=== PATIENT | male | born 1950 | race Caucasian/White ===

== ENCOUNTER → 2019-08-27 08:58 | Outpatient (CLI) | payer MEDICARE, OTHER, SELFPAY ==
--- NOTE | 2019-08-27 | CA_ITS ---
APPROVED REPORT Exam: Exercise Treadmill Technologist: Antonietta Colon, Ht: 5 ft 10 in Wt: 211 lbs BSA: 2.14 m2 HR: 82 bpm BP: 130/88 mmHg Rhythm: SINUS RHYTHM Medical History Medical History: Smoking Allergies: No known drug allergies Cardiac Risk Factors: Smoking Stress Test Details Test: Pb HR Resting HR: 84 bpm Max Heart Rate (APMHR): 151 bpm Max HR Achieved: 149 bpm Target HR (85% APMHR): 128 bpm % of APMHR: 98 Recovery HR: 128 bpm BP Resting BP: 144.0/89.0 mmHg Max BP: 174.0/92.0 mmHg Recovery BP: 167.0/92.0 mmHg ECG Resting ECG: SINUS RHYTHM Clinical Exercise duration: 07:50 min Highest Stage Achieved: Exercise capacity: 10.1 METs Stress ECG Conclusion PB PROTOCOL COMPLETED. EXERCISED 7:50. METS = 10.1. MAX BP 174/92. STOPPED DUE TO SOA AND KNEE PAIN. NO CHEST PAIN. NO ECTOPY. LESS THAN 1.[address] DEPRESSION. GXT ONLY. AVERAGE EXERCISE TOLERANCE. APPROPRIATE BP RESPONSE. NO CHEST PAIN, LESS THAN 1.5MM ST DEPRESSION Electronically signed by : Thanh Peña, 08/30/2019 07:07:24
== END ==
PROVIDERS: Visit Provider Family Medicine
DX: R07.89 Other chest pain (principal)
CPT/HCPCS: 93017

== ENCOUNTER → 2021-06-19 09:27 | Outpatient (POV) | payer MEDICARE, OTHER, SELFPAY | PROVIDERS: Visit Provider Dermatology | DX: Z00.00 Encounter for general adult medical examination without abnormal findings (principal) ==

== ENCOUNTER → 2021-06-22 13:11 | Outpatient (CLI) | payer MEDICARE, OTHER, SELFPAY ==
--- NOTE | 2021-06-22 13:16 | CT_ITS ---
FINAL REPORT CLINICAL HISTORY: H/O NICOTINE DEPENDENCE, SMOKER FOR 50+ YEARS FINDINGS: Low-Dose Chest CT CTDI vol (mGy): 2.90 DLP (mGy-cm): 112.81 Axial images were obtained from the lung apex to the mid abdomen by computed tomography. Low-dose protocol was utilized. FINDINGS: CHEST: There is no axillary adenopathy. There is no hilar or mediastinal adenopathy. The heart is proper size. There is no pericardial or pleural effusion. Limited images of the upper abdomen are unremarkable. Lung window images demonstrate mild scarring. There are multi focal small ground-glass nodules/opacities which are greatest in the right upper lobe. There is a 2 mm nodule in the lateral left upper lobe on image 27. There is a 4 mm nodule lateral left lower lobe on image 69. There are several calcified granulomas in the left lower lobe. IMPRESSION: Lung RADS category 2. Recommend 12 month follow-up low-dose chest CT. Reviewed, Interpreted and Dictated by Houston Sahni III, MD Transcribed by Gricel Anderson Authenticated by Houston Sahni III, MD on 06/22/2021 02:07:07 PM [facility]
== END ==
PROVIDERS: PCP Family Medicine; Visit Provider Family Medicine
DX: Z87.891 Personal history of nicotine dependence (principal); Z12.2 Encounter for screening for malignant neoplasm of respiratory organs
CPT/HCPCS: 71271

== ENCOUNTER → 2021-06-27 11:18 | Outpatient (CLI) | payer MEDICARE, SELFPAY ==
[2021-06-28 06:44] LABS: Covid-19 Nasal PCR Sendout Lex NOT DETECTED
== END ==
PROVIDERS: PCP Family Medicine; Visit Provider Nurse Practitioner
DX: Z20.822 Contact with and (suspected) exposure to COVID-19 (principal)
CPT/HCPCS: C9803; U0004; U0005

== ENCOUNTER → 2021-06-27 11:28 | Outpatient (CLI) | payer MEDICARE, SELFPAY | PROVIDERS: PCP Family Medicine; Visit Provider Nurse Practitioner | DX: Z20.822 Contact with and (suspected) exposure to COVID-19 (principal) ==

== ENCOUNTER 2021-06-29 09:24 | Day surgery (SDC) | payer MEDICARE, SELFPAY ==
[2021-06-27 09:27] VITALS: BMI 29.5
[2021-06-29] VITALS (7 sets, daily range): BP systolic 130–153; BP diastolic 86–98; PULSE 76–100; RESP 18; TEMP 36.3–36.4; O2SAT 95–98
--- NOTE | 2021-06-29 09:55 | HMH.ANESCL ---
[facility] Anesthesia Checklist - Patient Identification Patient Identification: Arm Band - Structural Data Admitted From: Home Planned Operative Procedure/s: Ureteroscopy Consent for Planned Operative Procedure(s) Verified: Yes - NPO Status Verified Time NPO: 07:00 (Prep) - Additional verifications Anesthesia Reactions: No Hx Blood Transfusions: No Blood Transfusion Reaction: No - Airway Assessment C-Spine Mobility Assessed: Yes TMJ Mobility Assessed: Yes Dentition: Good Dentition - Neurological Assessment Level of Consciousness: Awake Hx Seizures: No Numbness or tingling in extremities: No - Anesthesia Plan Anesthesia Risk discussed: Yes Anesthesia Plan: Verified ASA Class: II Anesthesia Type: MAC [facility] History I have reviewed the patient's past medical history: Yes Medical History: Reports:: Cancer (skin - back), Hypertension Denies:: Diabetes Mellitus Type 1, Diabetes Mellitus Type 2, Internal Pacemaker, MRSA, Seizures *Have you ever received a pneumonia vaccine?: No *Have you received a flu vaccine this season?: No Other Medical History: Denies: Blood Transfusion Reaction Anesthesia experience/problems:: None Laterality Cases: Bilateral: Tonsillectomy Other Surgeries: No: Pacemaker Amputation: No Fractures: No - *Social History Last grade of school completed: High school graduate Smoking Status: Current every day smoker Tobacco Type: cigarettes # Packs/Day (cigarettes): 1 Alcohol Intake: never Substance Use Type: denies use *Occupational Status:: retired Housing: house Household Members: spouse *Travel in the last 8 weeks: None Family Hx:: Unable to obtain
--- NOTE | 2021-06-29 11:35 | HMH.SCOPE ---
- Procedure: Date: 06/29/21 Patient Date of :: 1950 Procedure Performed:: Total colonoscopy to terminal ileum with numerous polypectomy using cold snare and biopsy forceps Indications:: Patient is a 70-year-old male. He is referred by Dr. Matthieu Quinn for initial screening colonoscopy. He is somewhat hard of hearing. He does have a family history of colon cancer in his grandfather at an advanced age. He is asymptomatic regarding melena or symptoms consistent with hematochezia. Performing Provider:: Houston Richard MD Referring Provider:: Matthieu Quinn MD Sedation:: MAC sedation Procedure:: Patient was taken to endoscopy procedure room. He was positioned in lateral decubitus position. Adequate intravenous sedation was achieved with anesthesia titration of propofol. Digital examination was performed which was unremarkable. Variable stiffness Olympus colonoscope was inserted via the anus. Is advanced to the cecum. There is a large amount of liquid with gaseous bubbles noted. Irrigation and suctioning was performed to allow for good visualization. Ileocecal valve and appendiceal orifice were clearly identified. Colonoscope was advanced short distance into the terminal ileum. There was a small distal ileal diverticulum. Colonoscope was withdrawn into the colon. There were a couple of tiny diminutive polyps in the cecum removed with biopsy forceps. Colonoscope was withdrawn through the colon with careful surveillance. Distal transverse colon polyp was removed with biopsy forceps. There were a couple of small adenomatous appearing polyps in the descending colon measuring 4 to 6 mm. These were removed with cold snare. Distal descending colon there was a small polyp removed with biopsy forceps. In the sigmoid colon there were several polyps removed with biopsy forceps. In the distal sigmoid there were 3 polyps 2 of which were removed with cold snare and 1 removed with biopsy forceps. Small polyp in the rectum was removed with snare. Retroflexion within the rectum revealed no evidence of any pathologic internal hemorrhoids. He did have some sigmoid diverticulosis. Findings:: Small terminal ileum diverticulum Numerous small polyps, approximately 13, removed by snare and biopsy forceps techniques. Larger more adenomatous appearing polyps were in the descending colon. These measured about 6 mm. Sigmoid diverticulosis Recommendations:: Pending the pathology likely repeat colonoscopy 3 to 5 years Complications:: None immediately apparent Estimated blood obtained (mL): 3
== END 2021-06-29 12:38 | disposition home or self-care (01) ==
LOC: OUTP 09:25
PROVIDERS: PCP Family Medicine; Visit Provider Surgery
PROC: 0DJD8ZZ Inspection of Lower Intestinal Tract, Via Natural or Artificial Opening Endoscopic (ICD-10-PCS; principal; 2021-06-29 10:30)
DX: Z12.11 Encounter for screening for malignant neoplasm of colon (principal); K63.5 Polyp of colon; K62.1 Rectal polyp; K57.30 Diverticulosis of large intestine without perforation or abscess without bleeding; K57.32 Diverticulitis of large intestine without perforation or abscess without bleeding; K92.1 Melena; I10 Essential (primary) hypertension; Z85.828 Personal history of other malignant neoplasm of skin; Z72.0 Tobacco use; Z79.899 Other long term (current) drug therapy
CPT/HCPCS: 45380; 45385; 88305; J2704

== ENCOUNTER → 2021-07-03 13:33 | Outpatient (POV) | payer MEDICARE, SELFPAY | PROVIDERS: Visit Provider Dermatology | DX: Z00.00 Encounter for general adult medical examination without abnormal findings (principal) ==

== ENCOUNTER 2022-03-06 21:45 | Inpatient (IN) | payer MEDICARE, SELFPAY ==
--- NOTE | 2022-03-06 21:44 | ECG_ITS ---
APPROVED REPORT Exam: Resting ECG HR:80 bpm ECG Measurements Heart Rate 80 AXES ND 173 P 72 QRSd 113 QRS -55 QT 369 T 63 QTc 405 Conclusion SINUS RHYTHM INCOMPLETE RIGHT BUNDLE BRANCH BLOCK [90+ ms QRS DURATION, TERMINAL R IN V1/V2, 40+ ms S IN I/aVL/V4/V5/V6] LEFT ANTERIOR FASCICULAR BLOCK [QRS AXIS <= -45, QR IN I, RS IN II] ABNORMAL ECG UNCONFIRMED REPORT Electronically signed by : Thanh Peña MD 03/07/2022 21:06:50
[2022-03-06 21:45] VITALS: BP 166/108; PULSE 86; O2SAT 95
[2022-03-06 21:46] VITALS: BP 166/108; PULSE 82; RESP 16; TEMP 36.6; O2SAT 95; BMI 28.3
--- NOTE | 2022-03-06 21:49 | XR_ITS ---
PROCEDURE INFORMATION: Exam: XR Chest Exam date and time: 03/06/2022 10:22 PM Age: 71 years old Clinical indication: Other: Sharp pain between scapulae. ; Additional info: Chest pain TECHNIQUE: Imaging protocol: Radiologic exam of the chest. Views: 1 view. COMPARISON: CT LUNG SCREENING 06/22/2021 1:20 PM FINDINGS: Lungs: No consolidation. Pleural spaces: No pneumothorax. Heart/Mediastinum: No cardiomegaly. Bones/joints: No acute abnormality. IMPRESSION: No acute findings.
--- NOTE | 2022-03-06 21:49 | CT_ITS ---
PROCEDURE INFORMATION: Exam: CTA Chest With Contrast Exam date and time: 03/06/2022 10:45 PM Age: 71 years old Clinical indication: Pain; Angina pectoris; Additional info: Chest pain TECHNIQUE: Imaging protocol: Computed tomographic angiography of the chest with contrast. 3D rendering (Not supervised by radiologist): MIP and/or 3D reconstructed images were created by the technologist. Radiation optimization: All CT scans at this facility use at least one of these dose optimization techniques: automated exposure control; mA and/or kV adjustment per patient size (includes targeted exams where dose is matched to clinical indication); or iterative reconstruction. Contrast material: ISOVUE; Contrast volume: 75 ml; Contrast route: INTRAVENOUS (IV); COMPARISON: CR XR CHEST PORTABLE 03/06/2022 10:22 PM FINDINGS: Limitations: Bolus timing is non-diagnostic for exclusion of most pulmonary emboli (segmental/subsegmental) due to suboptimal pulmonary arterial opacification (main pulmonary artery <200 HU). Pulmonary arteries: No large central pulmonary emboli. Aorta: No aortic dissection or aneurysm. Lungs: No acute airspace consolidation. No appreciable pulmonary edema. Calcified pulmonary granuloma in the left lower lobe compatible with chronic sequelae of prior granulomatous disease. Pleural spaces: No pneumothorax. No pleural effusion. Heart: No cardiomegaly. No significant pericardial effusion. Lymph nodes: No enlarged lymph nodes by CT criteria. Intraperitoneal space: No emergent findings or suspicious mass lesions in the visualized upper abdomen. Bones/joints: No acute osseous abnormality. Soft tissues: Unremarkable. IMPRESSION: 1. No evidence of acute cardiopulmonary disease. 2. No evidence of large pulmonary emboli. Technically non-diagnostic study for definitive exclusion of most pulmonary emboli.
[2022-03-06 22:00] VITALS: BP 164/96; PULSE 75; O2SAT 93
[2022-03-06 22:00] LABS: Basophils # 0.1 K/mm3 (0-0.2); Eosinophils # 0.2 K/mm3 (0.0-0.4); Eosinophils % 2.2 % (0.1-12.0); Hematocrit 48.4 % (42.0-52.0); Hemoglobin 15.8 g/dL (14.1-18.0); Lymphocytes # 2.2 K/mm3 (0.7-4.5); Lymphocytes % 24.4 % (10-50); Mean Corpuscular HGB Conc 32.6 g/dL (31.8-35.4); Mean Corpuscular Hemoglobin 31.7 pg (27.0-31.2); Mean Corpuscular Volume 97.1 fl (80-94); Mean Platelet Volume 8.2 fl (7.4-10.4); Monocytes # 0.6 K/mm3 (0.1-1.0); Monocytes % 6.6 % (1.7-9.3); Neutrophils # 6.1 K/mm3 (1.8-7.8); Neutrophils % 65.8 % (37.0-80.0); Platelet Count 260 K/mm3 (142-424); Red Blood Count 4.98 M/mm3 (4.60-6.20); Red Cell Distribution Width 13.6 % (11.5-17.5); White Blood Count 9.2 K/mm3 (4.8-10.8)
--- NOTE | 2022-03-06 22:20 | HMH.EDGENADL ---
Discharge Plan Disposition Chief Complaint: Chest Pain Prescriptions Prescriptions: No Action lisinopril 10 MG tablet 10 mg PO DAILY rosuvastatin 10 MG tablet 10 mg PO DAILY Referrals Follow up/Referrals: Provider,Referral, [Referring] - See instructions Discharge ED Provider: Melissa Booth General Adult HPI General Chief complaint: Chest Pain Stated complaint: chest pain Time Seen by Provider: 03/06/22 21:49 Mode of Arrival: Ambulatory Source of Information: Patient Limitations: No Limitations Description of Symptoms (Recalled from ER Triage Doc. by RN): pt c/o midsternal chest burning radiating to back and down lt arm that started @ 9:15 History of Present Illness HPI narrative: This patient is a 71-year-old male with extensive smoking history and hypertension presented to the emergency department for evaluation of chest pain. It is substernal and radiates straight to his shoulder blades. He states that he also has sensation of numbness in his left upper extremity. He states that it started last night, but it resolved spontaneously. This morning, he was able to go to work without any issues. He went to bed tonight around 9 PM, and the pain started again. It is severe, sharp, constant, and nothing makes it better or worse. He states that he feels like he is having a heart attack. He denies any prior history of heart attacks, blood clots, or other concerns. He denies any fever, shortness of breath, abdominal pain, nausea, vomiting, changes in bowel movements, or other concerns. Related Data Home Medications Medication Instructions Recorded Confirmed lisinopril 10 mg tablet 10 mg PO DAILY High blood pressure 06/27/21 03/07/22 rosuvastatin 10 mg tablet 10 mg PO DAILY Cholesterol 06/27/21 03/07/22 Allergies Allergy/AdvReac Type Severity Reaction Status Date / Time No Known Allergies Allergy Verified 07/12/21 09:33 PFSH PFS Social History Smoking Status: Current every day smoker tobacco type: cigarettes packs per day: 1 alcohol intake: never substance use type: denies use current occupational status: retired Travel in the last 8 weeks: None household members: spouse housing: house current occupational exposures/hazards: No caffeine: Yes ROS Obtained: Yes All systems reviewed & no additional complaints except as documented 14 point review of systems obtained and otherwise negative except as mentioned in HPI. Physical Exam General General appearance: alert and in no apparent distress Head Head exam: atraumatic and normocephalic Eye Eye exam: Present normal appearance, PERRL and EOMI ENT ENT exam: Present normal exam and normal oropharynx Neck Neck exam: Present normal inspection and full ROM Chest Chest inspection: Present normal inspection and symmetric chest wall rise; Absent tenderness Respiratory Respiratory exam: Present normal lung sounds bilaterally; Absent respiratory distress or wheezes Cardiovascular Cardiovascular exam: Present regular rate and normal rhythm Abdominal Exam Abdominal exam: Present soft; Absent distention, tenderness or guarding Extremities Exam Extremities exam: Present normal inspection and full ROM; Absent tenderness or edema Back Exam Back exam: Present normal inspection Neurological Exam Neurological exam: Present alert, oriented X3 and CN II-XII intact; Absent motor sensory deficit Psychiatric Psychiatric exam: Present normal affect and normal mood Skin Skin exam: Present warm and dry Medical Decision Making Medical Records Medical records reviewed: Yes I reviewed the patient's medical records. Lenny Inquiry Pt receiving controlled substance: No Vital Signs: 03/06/22 21:46 03/06/22 21:45 03/06/22 22:00 Temperature 97.8 F Temperature Source Oral Pulse Rate 86 75 Pulse Rate [Right] 82 Respiratory Rate 16 Blood Pressure 166/108 H 164/96 H Blood Pressure [Right Arm] 166/108 H Blood Pressure Mean [Righ
[2022-03-06 22:25] LABS: Chloride 102 mmol/L (98-107); Sodium 137 mmol/L (136-145)
[2022-03-06 22:28] LABS: Blood Urea Nitrogen 23 mg/dl (9-20); Calcium 8.5 mg/dl (8.4-10.2); Carbon Dioxide 28 mmol/L (22.0-30.0); Creatinine Clearance Estimated 84 mL/min (50-200); Estimated Glomerular Filt Rate 83 ml/min (>60); GFR (African American) 100 ML/MIN (>60); Glucose 122 mg/dl (74-100)
[2022-03-06 22:30] VITALS: BP 154/96; PULSE 70; O2SAT 93
[2022-03-06 22:40] LABS: Troponin I 0.07 ng/ml (0.00-0.034)
[2022-03-06 23:00] VITALS: BP 153/84; PULSE 72; O2SAT 93
--- NOTE | 2022-03-06 23:06 | ECG_ITS ---
APPROVED REPORT Exam: Resting ECG HR:67 bpm ECG Measurements Heart Rate 67 AXES RI 171 P 67 QRSd 102 QRS -51 QT 362 T 49 QTc 378 Conclusion SINUS RHYTHM LEFT AXIS DEVIATION [QRS AXIS < -30] ABNORMAL ECG UNCONFIRMED REPORT Electronically signed by : Thanh Peña MD 03/07/2022 21:06:43
[2022-03-06 23:30] VITALS: BP 151/96; PULSE 66; O2SAT 94
[2022-03-07] VITALS (30 sets, daily range): BP systolic 107–194; BP diastolic 62–122; PULSE 60–74; RESP 14–18; TEMP 36.4–36.7; O2SAT 94–97; BMI 28.5
--- NOTE | 2022-03-07 | IR_ITS ---
APPROVED REPORT Patient Location: Inpatient PROCEDURES Left heart catheterization Left ventriculogram Selective coronary angiogram Drug-eluting stent deployment to the proximal mid dominant right coronary INDICATION Acute non-ST elevation myocardial infarction, Coronary artery disease Informed consent was obtained prior to the procedure. COMPLICATIONS NONE Estimated Blood Loss: LESS THAN 10 ML TECHNIQUE One percent lidocaine used to anesthetize the right anterior aspect of the wrist. The right radial artery was accessed via the Seldinger technique. A 6 Palestinian sheath was placed in the right radial artery. 2.5 mg of verapamil, 800 mcg of nitroglycerin, 1mg Lidocaine and 5000 U Heparin were given through the arterial sheath. The papa catheter was also used to perform left heart catheterization, left ventriculogram and selective coronary angiogram. At the end the diagnostic angiogram therapeutic heparin was administered giving a therapeutic ACT and the guide catheter was placed in the right coronary artery followed by a Choice PT extra-support wire. A 3 mm x 38 mm resolute Chris stent was deployed at 20 sima reducing the severe stenosis to 0%. SUSAN-3 flow was present before and after the procedure. At the end of the procedure the apparatus was removed the sheath was removed good hemostasis was achieved using TR banding patient was transferred to the postop putting in stable condition ANGIOGRAPHIC RESULTS The left main artery Normal The left anterior descending artery Is a large vessel which has mild proximal and mid vessel 10 to 20% stenoses The circumflex artery Is a large system which gives rise to a rate moderate sized ramus intermedius which is widely patent. The circumflex artery itself has a concentric 70 to 80% stenosis in the proximal portion of the terminal obtuse marginal artery. The obtuse marginal artery is approximately 3 mm in diameter The right coronary artery Is a dominant vessel and has proximal 70 to 90% stenoses. The LUNA ventriculogram reveals Normal 65% The left ventricular end-diastolic pressure 10 mmHg IMPRESSION Coronary disease as described above Successful stenting of the proximal to mid dominant right coronary severe disease reduced to 0% with 1 drug-eluting stent Persistent severe stenosis in the large proximal terminal obtuse marginal artery off a large circumflex artery Normal ejection fraction Normal left ventricular end-diastolic pressure PLAN 1. Dual antiplatelet therapy 2. Risk factor modification 3. At this time I favor treating the terminal obtuse marginal artery medically. The likely culprit for patient's angina was almost certainly the right coronary artery. Should patient continue to experience angina pectoris I would consider bringing him back to the [facility] and undergo stenting of the obtuse marginal artery. At this time I do believe medical management should suffice 4. LDL less than 55 to be achieved with high intensity statin 5. Avoidance of tobacco products 6. Cardiac rehabilitation Electronically signed by : Rajendra Ro MD 03/07/2022 13:09:39
[2022-03-07 00:30] LABS: Troponin I 0.08 ng/ml (0.00-0.034)
--- NOTE | 2022-03-07 02:01 | PC.NURSE ---
on phone with dr laird
--- NOTE | 2022-03-07 02:01 | PC.NURSE ---
paged dr white at this time
[2022-03-07 02:26] LABS: Coronavirus 19, PCR Not Detected (NotDetected); Influenza A, PCR Not Detected (NotDetected); Influenza B, PCR Not Detected (NotDetected)
--- NOTE | 2022-03-07 03:27 | PC.NURSE ---
PT ARRIVED TO FLOOR AT THIS TIME
[2022-03-07 04:27] LABS: Basophils # 0.1 K/mm3 (0-0.2); Basophils % 1.3 % (0.1-2.0); Eosinophils # 0.2 K/mm3 (0.0-0.4); Eosinophils % 2.8 % (0.1-12.0); Hematocrit 47.8 % (42.0-52.0); Hemoglobin 15.3 g/dL (14.1-18.0); Lymphocytes # 2.4 K/mm3 (0.7-4.5); Lymphocytes % 30.8 % (10-50); Mean Corpuscular Hemoglobin 31.3 pg (27.0-31.2); Mean Corpuscular Volume 97.9 fl (80-94); Mean Platelet Volume 8.3 fl (7.4-10.4); Monocytes # 0.6 K/mm3 (0.1-1.0); Monocytes % 7.1 % (1.7-9.3); Neutrophils # 4.5 K/mm3 (1.8-7.8); Platelet Count 248 K/mm3 (142-424); Red Blood Count 4.88 M/mm3 (4.60-6.20); Red Cell Distribution Width 13.7 % (11.5-17.5); White Blood Count 7.8 K/mm3 (4.8-10.8)
[2022-03-07 04:48] LABS: Chloride 104 mmol/L (98-107); Potassium 3.9 mmoL/L (3.5-5.1); Sodium 138 mmol/L (136-145)
[2022-03-07 04:51] LABS: Blood Urea Nitrogen 20 mg/dl (9-20); Creatinine Clearance Estimated 84 mL/min (50-200); Estimated Glomerular Filt Rate 83 ml/min (>60); GFR (African American) 100 ML/MIN (>60)
[2022-03-07 04:52] LABS: Anion Gap 10.9 mEq/L (5-15); Calcium 8.3 mg/dl (8.4-10.2); Carbon Dioxide 27 mmol/L (22.0-30.0); Glucose 96 mg/dl (74-100)
[2022-03-07 05:04] LABS: Troponin I 0.11 ng/ml (0.00-0.034)
--- NOTE | 2022-03-07 05:14 | PC.NURSE ---
0500 spoke to er nurse bri to confirm heparin missed dose in er, bri confirmed heparin was not given at 0215.
--- NOTE | 2022-03-07 05:15 | PC.NURSE ---
pt admitted this shift, pt denies cp, no edema, no acute distress, telemetry reveals normal sinus rythm, mild edema noted in hands verbalized by pt, pt is alert and oriented x4, no other issues or concerns at this time.
--- NOTE | 2022-03-07 07:12 | HMH.PHAINT1 ---
Pharmacy Intervention Comments: Home medication reconciliation completed using outpatient pharmacy fill history.
--- NOTE | 2022-03-07 08:36 | EXP.HP ---
History of Present Illness *Admission Date: 03/06/22 *Reason for visit:: chest pain *History of present illness: Mr. Abdi is a 71-year-old male with a history of hypertension, hyperlipidemia, along with an extensive smoking history who began having chest pain 2 nights ago. He states he was sitting at home and began having pain between his shoulder blades that then radiated to his midsternal chest and down his left arm. He states this lasted around 30 minutes and went away on its own. Yesterday he was at work and began having similar episodes that would last anywhere from 5 to 10 minutes. He decided to drive himself to the emergency room for evaluation and treatment. He denies any history of previous coronary disease. He does have a strong family history of coronary artery disease and states his father had approximately 7 heart attacks. He just recently lost his and states his blood pressure has been elevated ever since her cancer diagnosis. PFSH PFS Medical History History of broken finger History of broken finger Hyperlipidemia Hypertension Skin cancer Tobacco use Surgical History (Updated 03/07/22 @ 08:40 by JANE Couch) History of surgical removal of skin lesion History of tonsillectomy Family History (Updated 03/07/22 @ 08:40 by JANE Couch) Coronary artery disease Heart attack Cancer Hypertension Social History Smoking Status: Current every day smoker tobacco type: cigarettes packs per day: 1 years smoked: 56 quit status: has quit before Tobacco counseling given: patient declined alcohol intake: never substance use type: denies use current occupational status: employed and retired Travel in the last 8 weeks: None household members: none housing: house lives independently: Yes marital status: current occupational exposures/hazards: No caffeine: Yes special dany needs: No Review of Systems Constitutional Constitutional: Denies fatigue, Denies headache(s) and Denies weakness Eyes Eyes: Denies blurry vision and Denies diplopia ENT Ears, Nose, Mouth, and Throat: Denies headache(s), Denies nasal congestion, Denies sore throat and Reports vertigo *Cardiovascular Cardiovascular: Reports chest pain, Denies dyspnea and Denies leg edema *Respiratory Respiratory: Denies cough and Denies dyspnea *Gastrointestinal Gastrointestinal: Denies abdominal pain, Denies loose stools, Denies nausea and Denies vomiting *Genitourinary Genitourinary: Denies difficulty urinating and Denies dysuria *Musculoskeletal Musculoskeletal: Denies arthralgias and Denies myalgias *Neurologic Neurologic: Denies headache(s), Reports vertigo and Denies weakness Endocrine Endocrine: Denies fatigue Meds Home Medications and Allergies Home Medications Medication Instructions Recorded Confirmed Type lisinopril 10 mg tablet 10 mg PO DAILY Hypertension 06/27/21 03/07/22 History rosuvastatin 10 mg tablet 10 mg PO DAILY hyperlipidemia 06/27/21 03/07/22 History New Prescriptions to Start Prescriptions: Allergies Allergy/AdvReac Type Severity Reaction Status Date / Time No Known Allergies Allergy Verified 07/12/21 09:33 Exam Data for Last 24 hours Vital signs and Labs for Last 24 Hours: Temp Pulse Resp BP Pulse Ox 97.6 F 74 16 157/91 H 95 03/07/22 08:00 03/07/22 08:00 03/07/22 08:00 03/07/22 08:00 03/07/22 08:00 Laboratory Results - last 24 hr 03/06/22 21:48: WBC 9.2, RBC 4.98, Hgb 15.8, Hct 48.4, MCV 97.1 H, MCH 31.7 H, MCHC 32.6, RDW 13.6, Plt Count 260, MPV 8.2, Neut % (Auto) 65.8, Lymph % (Auto) 24.4, [place] % (Auto) 6.6, Eos % (Auto) 2.2, Baso % (Auto) 1.0, Neut # (Auto) 6.1, Lymph # (Auto) 2.2, [place] # (Auto) 0.6, Eos # (Auto) 0.2, Baso # (Auto) 0.1 03/06/22 21:48: Sodium 137, Potassium 4.0, Chloride 102, Carbon Dioxide 28, Anion Gap 11.0, BUN 23 H, Creatinine 0.90, Estimated Creat Clear 84, Est
--- NOTE | 2022-03-07 09:59 | CA_ITS ---
APPROVED REPORT EXAM: Comprehensive 2D, Doppler, and color-flow Echocardiogram Satellite Tv Technician Installer: Paula Dickinson RT(R) Ht: 5 ft 10 in Wt: 199lbs BSA: 2.08 BP: 157/91 mmHg Indications: NSTEMI, CP, smoker, HTN, hyperlipidemia 2D Dimensions Aortic Root 2.16 cm M: 3.1 - 3.7 M-Mode Dimensions RVDd 3.22 cm (0.9-2.6) LA Diam 2.96 cm (1.9-4.0) LVDd 4.36 cm (3.5-5.7) Ao Diam 2.71 cm (2.0-3.7) LVDs 3.45 cm (3.5-5.7) IVSd 0.95 cm (0.6-1.1) PWd 1.12 cm (0.6-1.1) EF (Teich) 42.80% FS 20.90% EDV (Teich) 85.80 mL ESV (Teich) 49.10 mL Conclusion 1. Limited echocardiogram was performed to evaluate left ventricular systolic function. 2. Normal left ventricular size preserved left ventricular systolic function, estimated ejection fraction 50% with no regional wall motion abnormality, endocardial surfaces are poorly visualized. 3. Mildly enlarged right atrium and right ventricle with normal contractility. 4. No significant pericardial effusion noted. 5. Inferior vena cava is poorly visualized. Electronically signed by : Tam Hoffman MD 03/08/2022 14:54:35
--- NOTE | 2022-03-07 10:10 | EXP.CARD.CON ---
History of Present Illness History of Present Illness Consult date: 03/07/22 Requesting physician: Richard Newsome Consult reason: chest pain Chief complaint: chest pain History of present illness: This is a 71-year-old white gentleman who presented to the emergency department with complaints of chest pain. His chest pain started a few nights prior to him coming into the hospital. He states that this is a substernal sharp severe pain that is constant. It radiates to his shoulder blades and down his left arm causing numbness. It is associated with shortness of breath and nausea. It lasts for approximately 30 minutes before it resolves. The patient states that the pain is just worsening and occurring more frequently so he came into the emergency department. The patient does have a strong family history of ischemic heart disease. He states that his father had 7 MIs and was on the table having a triple bypass when he from another PA at the age of 56. He does have some shortness of breath with exertion as well. He denies any fever, chills, nausea, vomiting, diarrhea, PND or orthopnea. He is a current tobacco user. PFSH PFSH Medical History Angina pectoris Elevated troponin History of broken finger History of broken finger Hyperlipidemia Hypertension Non-STEMI (non-ST elevated myocardial infarction) Shortness of Breath Skin cancer Tobacco use Surgical History (Updated 03/07/22 @ 08:40 by JANE Couch) History of surgical removal of skin lesion History of tonsillectomy Family History (Updated 03/07/22 @ 08:40 by JANE Couch) Other Cancer Coronary artery disease Heart attack Hypertension Social History Smoking Status: Current every day smoker tobacco type: cigarettes packs per day: 1 years smoked: 56 quit status: has quit before Tobacco counseling given: patient declined alcohol intake: never substance use type: denies use current occupational status: employed and retired Travel in the last 8 weeks: None household members: none housing: house lives independently: Yes marital status: current occupational exposures/hazards: No caffeine: Yes special dany needs: No Review of Systems Review of Systems Review of systems:: pertinent systems reviewed and negative unless documented below Constitutional Constitutional: Reports system reviewed and no additional complaints, except as documented Eyes Eyes: Reports system reviewed and no additional complaints, except as documented ENT Ears, Nose, Mouth, and Throat: Reports system reviewed and no additional complaints, except as documented *Cardiovascular Cardiovascular: Reports system reviewed and no additional complaints, except as documented, Reports as per HPI, Reports chest pain, Reports chest pain at rest, Reports chest pain with activity, Reports dyspnea, Reports dyspnea on exertion and Reports radiating jaw, neck or arm pain *Respiratory Respiratory: Reports system reviewed and no additional complaints, except as documented, Reports dyspnea and Reports dyspnea on exertion *Gastrointestinal Gastrointestinal: Reports system reviewed and no additional complaints, except as documented and Reports nausea *Genitourinary Genitourinary: Reports system reviewed and no additional complaints, except as documented *Musculoskeletal Musculoskeletal: Reports system reviewed and no additional complaints, except as documented Integumentary/Breasts Skin/Breast: Reports system reviewed and no additional complaints, except as documented Psychiatric Psychiatric: Reports system reviewed and no additional complaints, except as documented Endocrine Endocrine: Reports system reviewed and no additional complaints, except as documented Hematologic/Lymphatic Hematologic/Lymphatic: Reports system reviewed and no additional complaints, except as documented Allergic/Immunologic Allergic/Immunologic
[2022-03-07 11:33] LABS: CATHL Activated Clotting Time 293 SEC (74-125)
--- NOTE | 2022-03-07 11:50 | SUR.PHASEII ---
Notified Nadya that pt bp has been high, Nadya stated it has been addressed and a new med has been ordered, see chart for details
--- NOTE | 2022-03-07 17:37 | PC.NURSE ---
RADIAL BAND REMOVED FOLLOWS: 1345 - 2MLS OUT 1400 - 2 MLS OUT 1415 - 2MLS OUT 1430 - 2MLS OUT 1445 - 2MLS OUT 1500 - 2NLS OUT 1545 - RADIAL BAND OFF, TELFA AND TEGADERM PLACED; NO DRAINAGE OR HEMATOMA NOTED
--- NOTE | 2022-03-07 18:29 | PC.NURSE ---
Pt is alert and oriented x4. He is s/p heart cath with stent placement to rca. Radial band has been removed with telfa and tegaderm in place. No hematoma noted. He remains on RA and tolerating well. He's denied any complaints. V/S have been stable. Bed is locked and in the lowest position, call light is within reach.
[2022-03-08] VITALS: BP 142/82; PULSE 65; PULSE 69; RESP 16; TEMP 36.6; O2SAT 96
[2022-03-08 04:00] VITALS: BP 140/78; PULSE 60; PULSE 77; RESP 18; TEMP 36.7; O2SAT 95
[2022-03-08 05:00] VITALS: BMI 28.4
--- NOTE | 2022-03-08 06:23 | PC.NURSE ---
Addendum entered by Lupis Winter RN 03/08/22 06:31: telemetry reveals nsr with prolonged qt Original Note: pt rested well all night, vss, no acute distress, no c/o chest pain, pt stated he is ready to go home, dressing to left radial site cdi, pt requested armboard to prevent him from hitting it, no other issues or concerns noted at this time.
[2022-03-08 07:07] LABS: Chloride 106 mmol/L (98-107); Potassium 4.1 mmoL/L (3.5-5.1); Sodium 136 mmol/L (136-145)
[2022-03-08 07:09] LABS: Alanine Aminotransferase 18 U/L (12-78); Anion Gap 7.1 mEq/L (5-15); Aspartate Amino Transferase 26 U/L (17-59); Bilirubin,Unconjugated 0.5 mg/dL (0.0-1.1); Blood Urea Nitrogen 13 mg/dl (9-20); Carbon Dioxide 27 mmol/L (22.0-30.0); Creatinine Clearance Estimated 85 mL/min (50-200); Estimated Glomerular Filt Rate 83 ml/min (>60); GFR (African American) 100 ML/MIN (>60)
[2022-03-08 07:10] LABS: Albumin Level 3.3 g/dl (3.5-5.0); Alkaline Phosphatase 74 U/L (38-126); Bilirubin,Direct 0.1 mg/dl (0.0-0.4); Bilirubin,Indirect 0.5 mg/dL (0.0-0.9); Bilirubin,Total 0.6 mg/dl (0.2-1.3); Calcium 8.1 mg/dl (8.4-10.2); Chol/HDL Ratio 4.2 (1-3.5); Cholesterol 137 mg/dl (140-200); Glucose 94 mg/dl (74-100); HDL Cholesterol 33 mg/dl (40-60); Total Protein,Serum 5.5 g/dl (6.3-8.2); Triglycerides 163 mg/dl (30-150); VLDL Cholesterol 33 mg/dL (0-40)
[2022-03-08 07:13] LABS: Basophils # 0.2 K/mm3 (0-0.2); Basophils % 2.4 % (0.1-2.0); Eosinophils # 0.1 K/mm3 (0.0-0.4); Eosinophils % 1.8 % (0.1-12.0); Hematocrit 47.6 % (42.0-52.0); Hemoglobin 15.3 g/dL (14.1-18.0); Lymphocytes # 1.4 K/mm3 (0.7-4.5); Lymphocytes % 19.1 % (10-50); Mean Corpuscular Hemoglobin 31.2 pg (27.0-31.2); Mean Corpuscular Volume 97.4 fl (80-94); Mean Platelet Volume 8.5 fl (7.4-10.4); Monocytes # 0.5 K/mm3 (0.1-1.0); Monocytes % 6.8 % (1.7-9.3); Neutrophils # 5.1 K/mm3 (1.8-7.8); Neutrophils % 69.8 % (37.0-80.0); Platelet Count 248 K/mm3 (142-424); Red Blood Count 4.89 M/mm3 (4.60-6.20); Red Cell Distribution Width 13.9 % (11.5-17.5); White Blood Count 7.3 K/mm3 (4.8-10.8)
[2022-03-08 07:21] LABS: Direct LDL Cholesterol 69.36 mg/dL (100-129)
[2022-03-08 08:00] VITALS: BP 137/82; PULSE 68; RESP 22; TEMP 36.5; O2SAT 95
--- NOTE | 2022-03-08 08:07 | EXP.ACUTE.PN ---
Subjective *Date: 03/08/22 *Time: 08:41 Interval history: Patient states he is feeling well this morning. He slept well and ate well and wants to go home. Medical Exam Vital signs and Labs for Last 24 Hours: Vital Signs Temp Pulse Pulse Resp BP Pulse Ox 03/08/22 04:00 60 03/08/22 00:00 65 03/08/22 04:00 98.0 F 77 18 140/78 95 03/07/22 20:00 70 03/08/22 00:00 97.9 F 69 16 142/82 H 96 03/07/22 20:00 96 03/07/22 19:35 98.0 F 71 18 137/76 96 03/07/22 18:45 66 18 132/72 94 L 03/07/22 16:00 60 03/07/22 17:45 64 16 124/62 95 03/07/22 16:45 60 16 114/76 96 03/07/22 15:45 61 16 125/80 94 L 03/07/22 14:45 63 18 107/64 L 95 03/07/22 14:15 60 16 111/64 97 03/07/22 13:45 61 16 131/86 96 03/07/22 13:15 62 16 139/87 95 03/07/22 12:45 63 14 139/84 03/07/22 12:30 65 16 141/83 H 95 03/07/22 12:15 64 16 144/94 H 94 L 03/07/22 12:00 68 18 155/118 H 97 03/07/22 11:45 68 18 173/111 H 94 L 03/07/22 11:45 65 18 173/111 H 95 03/07/22 11:40 73 18 193/113 H 94 L 03/07/22 11:35 74 18 192/114 H 94 L 03/07/22 11:30 70 18 194/122 H 94 L 03/07/22 11:30 72 Intake and Output 03/07/22 03/08/22 03/08/22 19:59 03:59 11:59 Intake Total 720 / 840 120 / 840 Output Total 300 / 300 0 / 300 Balance 420 / 540 120 / 540 0 / 540 Intake: Intake, Oral Amount 720 / 840 120 / 840 Output: Output, Urine Amount 300 / 300 0 / 300 Other: Number of Unmeasured Voids 3 1 1 Weight 198 lb 7 oz Patient Weight 03/08/22 11:59 Weight 198 lb 7 oz Laboratory Results - last 24 hr 03/07/22 11:13: Activated Clotting Time 293 H* 03/08/22 06:47: WBC 7.3, RBC 4.89, Hgb 15.3, Hct 47.6, MCV 97.4 H, MCH 31.2, MCHC 32.0, RDW 13.9, Plt Count 248, MPV 8.5, Neut % (Auto) 69.8, Lymph % (Auto) 19.1, [place] % (Auto) 6.8, Eos % (Auto) 1.8, Baso % (Auto) 2.4 H, Neut # (Auto) 5.1, Lymph # (Auto) 1.4, [place] # (Auto) 0.5, Eos # (Auto) 0.1, Baso # (Auto) 0.2 03/08/22 06:47: Sodium 136, Potassium 4.1, Chloride 106, Carbon Dioxide 27, Anion Gap 7.1, BUN 13 D, Creatinine 0.90, Estimated Creat Clear 85, Estimated GFR 83, Est GFR ( Amer) 100, Glucose 94, Calcium 8.1 L, Total Bilirubin 0.6, Direct Bilirubin 0.1, Conjugated Bilirubin 0.0, Indirect Bilirubin 0.5, Unconjugated Bilirubin 0.5, AST 26, ALT 18, Alkaline Phosphatase 74, Total Protein 5.5 L, Albumin 3.3 L, Triglycerides 163 H, Cholesterol 137 L, LDL Cholesterol Direct 69.36 L, VLDL Cholesterol 33, HDL Cholesterol 33 L, Cholesterol/HDL Ratio 4.2 H I & O for Labs for Last 24 Hours: Intake & Output 03/05/22 03/06/22 03/07/22 03/08/22 11:59 11:59 11:59 11:59 Intake Total 840 / 840 Output Total 0 / 0 300 / 300 Balance 0 / 0 540 / 540 Weight 199 lb 1 oz 198 lb 7 oz Constitutional: Present no acute distress Respiratory: Present CTA bilaterally Cardiac: Present Reg Rate and Rhythm GI: Present soft and normal bowel sounds; Absent distention or tenderness Extremities: Absent edema, clubbing or cyanosis Skin: Present intact Neuro: Present alert and awake Additional Findings:: Cardiac Cath IMPRESSION Coronary disease as described above. Successful stenting of the proximal to mid dominant right coronary severe disease reduced to 0% with 1 drug-eluting stent. Persistent severe stenosis in the large proximal terminal obtuse marginal artery off a large circumflex artery Normal ejection fraction Normal left ventricular end-diastolic pressure PLAN 1. Dual antiplatelet therapy 2. Risk factor modification 3. At this time I favor treating the terminal obtuse marginal artery medically.? The likely culprit for patient's angina was almost certainly the right coronary artery.? Should patient continue to experience angina pectoris I would consider bringing him back to the [facility] and undergo stenting of the obtuse marginal artery.? At this
--- NOTE | 2022-03-08 09:27 | EXP.CARD.PN ---
Subjective Subjective Date: 03/08/22 Time: 09:00 Principal diagnosis: nonstemi, CAD Interval history: This is a 71-year-old white gentleman who presented to the emergency department complaints of chest pain. The patient had an elevated troponin consistent with a non-STEMI and underwent left cardiac catheterization yesterday. The patient had stenting with 1 drug-eluting stent to the right coronary artery. He has persistent severe stenosis to the large proximal terminal obtuse marginal artery which Dr. Ro felt would be best managed medically at this time. If he has recalcitrant angina he could always come back to the [facility] for possible intervention. This morning he denies any chest pain, pressure, shortness of breath or edema. He denies any fever, chills, nausea, vomiting, diarrhea, PND, orthopnea. Exam Data for Last 24 hours Vital signs and Labs for Last 24 Hours: Temp Pulse Resp BP Pulse Ox 97.7 F 68 22 137/82 95 03/08/22 08:00 03/08/22 08:00 03/08/22 08:00 03/08/22 08:00 03/08/22 08:00 Laboratory Results - last 24 hr 03/07/22 11:13: Activated Clotting Time 293 H* 03/08/22 06:47: WBC 7.3, RBC 4.89, Hgb 15.3, Hct 47.6, MCV 97.4 H, MCH 31.2, MCHC 32.0, RDW 13.9, Plt Count 248, MPV 8.5, Neut % (Auto) 69.8, Lymph % (Auto) 19.1, [place] % (Auto) 6.8, Eos % (Auto) 1.8, Baso % (Auto) 2.4 H, Neut # (Auto) 5.1, Lymph # (Auto) 1.4, [place] # (Auto) 0.5, Eos # (Auto) 0.1, Baso # (Auto) 0.2 03/08/22 06:47: Sodium 136, Potassium 4.1, Chloride 106, Carbon Dioxide 27, Anion Gap 7.1, BUN 13 D, Creatinine 0.90, Estimated Creat Clear 85, Estimated GFR 83, Est GFR ( Amer) 100, Glucose 94, Calcium 8.1 L, Total Bilirubin 0.6, Direct Bilirubin 0.1, Conjugated Bilirubin 0.0, Indirect Bilirubin 0.5, Unconjugated Bilirubin 0.5, AST 26, ALT 18, Alkaline Phosphatase 74, Total Protein 5.5 L, Albumin 3.3 L, Triglycerides 163 H, Cholesterol 137 L, LDL Cholesterol Direct 69.36 L, VLDL Cholesterol 33, HDL Cholesterol 33 L, Cholesterol/HDL Ratio 4.2 H I & O for Last 24 hours: Intake & Output 03/05/22 03/06/22 03/07/22 03/08/22 23:59 23:59 23:59 23:59 Intake Total 720 / 840 600 / 600 Output Total 300 / 300 0 / 0 Balance 420 / 540 600 / 600 Weight 197 lb 199 lb 1 oz 198 lb 7 oz Narrative: EKG is sinus rhythm with left axis deviation and a rate of 67 bpm. Constitutional Constitutional: no acute distress and average body habitus *Routine HEENT Exam Head: Present normocephalic and atraumatic ENT: Present mucous membranes moist *Routine Neck Exam Neck: Present supple, full ROM and normal carotid upstroke; Absent JVD, carotid bruit or lymphadenopathy *Routine Respiratory Exam Respiratory: Present CTA bilaterally, normal respiratory effort, able to speak in complete sentences and symmetric chest movement *Routine Cardiovascular Exam Cardiovascular: Present RRR, Normal S1 and Normal S2; Absent murmur or gallop *Routine Abdominal Exam Abdominal: Present soft and normoactive bowel sounds; Absent tenderness, distended or organomegaly *Routine Extremities Exam Extremities: Present full ROM, pulses intact and normal capillary refill; Absent cyanosis, clubbing or edema *Routine Skin Exam Skin: Present intact and warm; Absent erythema *Routine Neurological Exam Neurological: Present alert, oriented X3 and CN II-XII intact; Absent sensory deficit or motor deficit Routine Psychiatric Exam Psychiatric: Present normal affect Progress Note: A&P Assessment and plan (1) Non-STEMI (non-ST elevated myocardial infarction): Status: Acute (2) Elevated troponin: Status: Acute (3) Coronary artery disease: Status: Acute (4) Angina pectoris: Status: Acute (5) Status post coronary artery stent placement: Status: Acute (6) Tobacco use: Status: Acute (7) Hypertension: Status: Acute (8) Hyperlipidemia: Status: Acute Assessment and Plan Assessment and Plan for All Diagnoses:: Plan: 1. This is a
--- NOTE | 2022-03-08 09:39 | HMH.PHACL ---
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 STARTING ASPIRIN 81 MG DAILY, METOPROLOL SUCCINATE 25 MG DAILY, AND BRILINTA 90 MG BID. PATIENT INDICATED HE HAS BEEN TAKING ASPIRIN BUT IT MAY HAVE BEEN THE 325 MG DOSE. INSTRUCTED PATIENT TO TAKE ONLY THE ASPIRIN 81 MG DOSE.
--- NOTE | 2022-03-08 09:55 | PC.NURSE ---
courtesy tech talat: Pt is sitting up in bed with no requests voiced at this time.
--- NOTE | 2022-03-11 14:26 | CARE MANAGER ---
Left message for post-discharge phone interview.
--- NOTE | 2022-03-12 22:43 | EXP.DC.SUM ---
General Admission date:: 03/07/22 Discharge date: 03/08/22 HPI HPI HPI: Mr. Abdi is a 71-year-old male with a history of hypertension, hyperlipidemia, along with an extensive smoking history who began having chest pain 2 nights ago. He states he was sitting at home and began having pain between his shoulder blades that then radiated to his midsternal chest and down his left arm. He states this lasted around 30 minutes and went away on its own. Yesterday he was at work and began having similar episodes that would last anywhere from 5 to 10 minutes. He decided to drive himself to the emergency room for evaluation and treatment. He denies any history of previous coronary disease. He does have a strong family history of coronary artery disease and states his father had approximately 7 heart attacks. He just recently lost his and states his blood pressure has been elevated ever since her cancer diagnosis. Hospital Course Hospital Course Hospital Course: The patient was admitted and cardiology was consulted. They wanted to perform a heart cath. This was done and the patient had successful stenting of the proximal to mid dominant right coronary with 1 stent. There was persistent severe stenosis in the large proximal terminal obtuse marginal artery of the large circumflex artery and they wanted to treat this medically. The patient's ejection fraction was normal and he had a normal left ventricular end-diastolic pressure. They started him on Brilinta and aspirin as well as statin therapy. By 03/08/2022 he was feeling well and was dressed and ready to go home. Cardiology wanted him to follow-up in their office in 1 to 2 weeks. Exam Data for Last 24 hours Vital signs and Labs for Last 24 Hours: Temp Pulse Resp BP Pulse Ox 97.7 F 68 22 137/82 95 03/08/22 08:00 03/08/22 08:00 03/08/22 08:00 03/08/22 08:00 03/08/22 08:00 Narrative: Constitutional Constitutional: no acute distress *Routine HEENT Exam Head: Present normocephalic and atraumatic Eye: Present EOMI and PERRL ENT: Present mucous membranes moist *Routine Neck Exam Neck: Present supple and full ROM *Routine Respiratory Exam Respiratory: Present CTA bilaterally *Routine Cardiovascular Exam Cardiovascular: Present RRR *Routine Abdominal Exam Abdominal: Present soft and normoactive bowel sounds; Absent tenderness *Routine Rectal Exam Rectal:: deferred *Routine Genitalia Exam Genitalia:: deferred *Routine Extremities Exam Extremities: Absent cyanosis, clubbing or edema Routine Back/Spine/Pelvis Exam Back/Spine: Present vertebral tenderness (along upper T-spine) *Routine Skin Exam Skin: Present intact; Absent erythema *Routine Neurological Exam Neurological: Present alert and oriented X3 DS: Diagnosis Discharge Diagnosis (1) Non-STEMI (non-ST elevated myocardial infarction): Status: Acute (2) Elevated troponin: Status: Acute (3) Coronary artery disease: Status: Acute (4) Angina pectoris: Status: Acute (5) Status post coronary artery stent placement: Status: Acute (6) Tobacco use: Status: Acute (7) Hypertension: Status: Acute (8) Hyperlipidemia: Status: Acute Meds Home Medications and Allergies Home Medications Medication Instructions Recorded Confirmed Type lisinopril 10 mg tablet 10 mg PO DAILY Hypertension 06/27/21 03/07/22 History rosuvastatin 10 mg tablet 10 mg PO DAILY hyperlipidemia 06/27/21 03/07/22 History aspirin 81 mg tablet,delayed 81 mg PO DAILY #30 tabs 03/08/22 Rx release metoprolol succinate 25 mg 25 mg PO DAILY #30 tabs 03/08/22 Rx tablet,extended release 24 hr ticagrelor 90 mg tablet (Brilinta) 90 mg PO BID #60 tabs 03/08/22 Rx New Prescriptions to Start Prescriptions: aspirin Portal,Richard metoprolol succinate Portal,Richard ticagrelor [Brilinta] Norma Newsome
== END 2022-03-08 10:48 | disposition home or self-care (01) | DRG 247 ==
LOC: ER 03-07 02:13 → 2ND 03-07 02:30
PROVIDERS: Internal Medicine; Nurse Practitioner Family; Admitting Provider Internal Medicine Adolescent Medicine; Emergency Provider Emergency Medicine; PCP Family Medicine; Visit Provider Family Medicine
PROC: 027034Z Dilation of Coronary Artery, One Artery with Drug-eluting Intraluminal Device, Percutaneous Approach (ICD-10-PCS; principal; 2022-03-07 11:00)
DX: F17.210 Nicotine dependence, cigarettes, uncomplicated (principal); I21.4 Non-ST elevation (NSTEMI) myocardial infarction; E78.5 Hyperlipidemia, unspecified; I10 Essential (primary) hypertension; Z82.49 Family history of ischemic heart disease and other diseases of the circulatory system; Z85.828 Personal history of other malignant neoplasm of skin; Z71.6 Tobacco abuse counseling; I25.119 Atherosclerotic heart disease of native coronary artery with unspecified angina pectoris
CPT/HCPCS: 36415; 71045; 71275; 80048; 80061; 80076; 84484; 85025; 85347; 92928; 93005; 93306; 93458; 99152; 99285; C1725; C1760; C1769; C1874; C9600; C9803; J1644; Q9967; U0003; U0005

== ENCOUNTER 2023-06-17 09:48 | Outpatient (CLI) | payer MEDICARE, SELFPAY ==
[2023-06-17 10:39] LABS: Basophils # 0.1 K/mm3 (0-0.2); Basophils % 1.1 % (0.1-2.0); Eosinophils # 0.2 K/mm3 (0.0-0.4); Hematocrit 50.7 % (42.0-52.0); Hemoglobin 16.6 g/dL (14.1-18.0); Lymphocytes # 1.7 K/mm3 (0.7-4.5); Lymphocytes % 22.7 % (10-50); Mean Corpuscular HGB Conc 32.7 g/dL (31.8-35.4); Mean Corpuscular Hemoglobin 32.2 pg (27.0-31.2); Mean Corpuscular Volume 98.6 fl (80-94); Mean Platelet Volume 8.8 fl (7.4-10.4); Monocytes # 0.5 K/mm3 (0.1-1.0); Monocytes % 7.2 % (1.7-9.3); Neutrophils # 4.9 K/mm3 (1.8-7.8); Platelet Count 228 K/mm3 (142-424); Red Blood Count 5.14 M/mm3 (4.60-6.20); Red Cell Distribution Width 13.7 % (11.5-17.5); White Blood Count 7.4 K/mm3 (4.8-10.8)
[2023-06-17 11:14] LABS: Alanine Aminotransferase 20 U/L (12-78); Alkaline Phosphatase 73 U/L (38-126); Anion Gap 7.8 mEq/L (5-15); Aspartate Amino Transferase 21 U/L (17-59); Bilirubin,Direct 0.1 mg/dl (0.0-0.4); Bilirubin,Indirect 0.3 mg/dL (0.0-0.9); Bilirubin,Total 0.4 mg/dl (0.2-1.3); Bilirubin,Unconjugated 0.3 mg/dL (0.0-1.1); Blood Urea Nitrogen 11 mg/dl (9-20); Calcium 9.1 mg/dl (8.4-10.2); Carbon Dioxide 30 mmol/L (22.0-30.0); Chloride 106 mmol/L (98-107); Chol/HDL Ratio 5.5 (1-3.5); Cholesterol 176 mg/dl (140-200); Estimated Glomerular Filt Rate 73 ml/min (>60); GFR (African American) 89 ML/MIN (>60); Glucose 92 mg/dl (74-100); HDL Cholesterol 32 mg/dl (40-60); Magnesium 2.2 mg/dl (1.6-2.3); Potassium 4.8 mmoL/L (3.5-5.1); Sodium 139 mmol/L (136-145); Total Protein,Serum 6.2 g/dl (6.3-8.2); Triglycerides 123 mg/dl (30-150); VLDL Cholesterol 25 mg/dL (0-40)
[2023-06-17 11:28] LABS: Direct LDL Cholesterol 107.65 mg/dL (100-129)
[2023-06-17 11:47] LABS: Thyroid Stimulating Hormone 2.43 uIU/mL (0.465-4.68)
== END 2023-06-17 23:59 ==
PROVIDERS: PCP Family Medicine; Visit Provider Nurse Practitioner
DX: E78.5 Hyperlipidemia, unspecified (principal); I10 Essential (primary) hypertension; I25.10 Atherosclerotic heart disease of native coronary artery without angina pectoris; Z72.0 Tobacco use; Z95.5 Presence of coronary angioplasty implant and graft
CPT/HCPCS: 36415; 80048; 80061; 80076; 83735; 84439; 84443; 85025

== ENCOUNTER 2024-12-30 11:07 | Outpatient (CLI) | payer MEDICARE, SELFPAY ==
--- NOTE | 2024-12-30 11:10 | XR_ITS ---
FINAL REPORT CLINICAL HISTORY: tobacco use COMPARISON: 03/07/2022 FINDINGS: 2 views of the chest were obtained . The heart is normal in size. The mediastinum is within normal limits. Mild chronic scarring is seen. The lungs are otherwise clear. There is no pneumothorax. Osseous structures are unremarkable. IMPRESSION: No acute cardiopulmonary process. Reviewed, Interpreted and Dictated by David Kim MD Transcribed by Margareth Mary Authenticated and [facility]
== END 2024-12-30 23:59 | disposition home or self-care (01) ==
LOC: RAD 11:08
PROVIDERS: PCP Family Medicine; Visit Provider Physician Assistant
DX: Z72.0 Tobacco use (principal)
CPT/HCPCS: 71046

== ENCOUNTER 2025-04-25 12:48 | Outpatient (CLI) | payer MEDICARE, SELFPAY ==
--- NOTE | 2025-04-25 12:50 | CT_ITS ---
FINAL REPORT TECHNIQUE: Axial CT images of the abdomen were obtained with IV contrast only. Coronal reformatted images were also obtained. This study was performed with techniques to keep radiation doses as low as reasonably achievable (ALARA). Individualized dose reduction techniques using automated exposure control or adjustment of mA and/or kV according to the patient''s size were employed. 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 There are few small scattered low-attenuation lesions in the liver measuring up to 27 mm consistent with benign cysts. The gallbladder appears normal without evidence of gallstones. There is no evidence of biliary ductal dilatation. The pancreas appears normal. The spleen size is within normal limits. There is no evidence of renal mass or hydronephrosis. There is no evidence of adenopathy. No abnormal fluid collection is seen. No localized inflammatory processes identified. There is minimal ectasia of the infrarenal abdominal aorta measuring 29 mm. The appendix is unremarkable. IMPRESSION: Benign-appearing cysts in the liver. Minimal ectasia infrarenal abdominal aorta. Reviewed, Interpreted and Dictated by David Kim MD Transcribed by Lina Calloway Authenticated and [facility]
[2025-04-25 13:13] LABS: Blood Urea Nitrogen 13 mg/dl (9-20); Creatinine,Serum 1.10 mg/dl (0.66-1.25); Estimated Glomerular Filt Rate 65 ml/min (>60); GFR (African American) 79 ML/MIN (>60)
[2025-04-25] MEDS: SODIUM CHLORIDE 0.9% 10ML SYR (RAD ONLY) 10 ML IV (13:38)
[2025-04-25] MEDS: IOPAMIDOL-370 (76%);100ML BOTTLE 75 ML IV (13:38)
== END 2025-04-25 23:59 | disposition home or self-care (01) ==
LOC: RAD 12:49
PROVIDERS: PCP Family Medicine; Visit Provider Family Medicine
DX: K76.89 Other specified diseases of liver (principal); I71.43 Infrarenal abdominal aortic aneurysm, without rupture
CPT/HCPCS: 36415; 74160; 82565; 84520; Q9967